=== PATIENT | female | born 1990 | race Caucasian/White ===

== ENCOUNTER 2016-10-15 01:16 | Emergency (ER) | payer MEDICARE, MEDICAID ==
[~2016-10-15] VITALS: Ht 162.6 cm; Wt 54.0 kg
[~2016-10-15 01:16] MED LIST: AMLO10TA4 PO; CLON0.1T PO; CLON1TAB4; DILT120C2 PO; HYDR-4005; HYDR-4134 PO; HYDR200T35; LISI-604 PO; METO25TA6 PO; NEPVIT PO; PRED5TAB48 PO
[2016-10-15] MEDS ORDERED: LORAZEPAM 2MG/ML CPJ IV ONE (01:45)
[2016-10-15] MEDS ORDERED: LORAZEPAM 2MG/ML CPJ IM STA (01:48)
[2016-10-15] MEDS ORDERED: DIPHENHYDRAMINE 50MG/ML VIAL IM STA (01:48)
[2016-10-15 02:09] LABS: HEMATOCRIT. 38.4 % (36.0-48.0); HEMOGLOBIN. 12.7 g/dL (12.0-16.0); MEAN CORPUSCULAR HEMOGLOBIN 30.3 pg (28.0-32.0); MEAN CORPUSCULAR VOLUME 91.6 fL (81.0-99.0); MEAN PLATELET VOLUME 8.8 fl (7.4-10.4); PLATELET 196 x1000/uL (130-400); RED BLOOD CELL COUNT 4.19 mill/uL (4.2-5.4); RED CELL DISTRIBUTION WIDTH 18.9 % (11.6-14.6)
[2016-10-15 02:18] LABS: HCG SCREEN NEGATIVE
[2016-10-15 02:25] LABS: CARBON DIOXIDE 28 mEq/L (21-32); CHLORIDE 96 mEq/L (98-107); ETHANOL BLOOD < 10 mg/dL
[2016-10-15 02:46] LABS: PLATELET ESTIMATE NORMAL
[2016-10-15] MEDS ORDERED: DIPHENHYDRAMINE 50MG/ML VIAL IV ONE (03:30)
[2016-10-15 04:07] VITALS: BP 123/86
== END 2016-10-15 04:44 | disposition home or self-care (01) ==
LOC: ER 01:16
DX: F41.0 Panic disorder [episodic paroxysmal anxiety] (principal); F12.10 Cannabis abuse, uncomplicated; R40.4 Transient alteration of awareness; F91.8 Other conduct disorders; R45.1 Restlessness and agitation; I12.0 Hypertensive chronic kidney disease with stage 5 chronic kidney disease or end stage renal disease; N18.6 End stage renal disease; Z99.2 Dependence on renal dialysis; I25.2 Old myocardial infarction; M32.9 Systemic lupus erythematosus, unspecified; Z95.0 Presence of cardiac pacemaker
CPT/HCPCS: 36415; 70450; 80053; 80307; 80329; 84703; 85025; 93005; 96372; 99285; G0482; J1200; J2060